=== PATIENT | female | born 1970 | race Two or more races ===

== ENCOUNTER 2019-04-23 13:04 | Emergency (ER) | payer OTHER ==
[~2019-04-23] VITALS: Ht 175.3 cm; Wt 108.9 kg
[2019-04-23] MEDS ORDERED: LISI-603 PO (13:16)
[2019-04-23] MEDS ORDERED: MECLIZINE HCL 25 MG TABLET PO ONE (14:15)
[2019-04-23] MEDS ORDERED: IV NORMAL SALINE 1000 ML BAG IV ONE (14:15)
[2019-04-23 14:16] LABS: BASOPHILS # (AUTO) 0.1 K/uL (0.0-8.0); BASOPHILS % (AUTO) 1.3 % (0.0-2.0); EOSINOPHILS # (AUTO) 0.3 K/uL (0.0-0.7); HEMATOCRIT 40.1 % (31.2-41.9); HEMOGLOBIN 12.8 g/dL (10.9-14.3); LYMPHOCYTES # (AUTO) 2.2 K/uL (20.0-40.0); LYMPHOCYTES % (AUTO) 25.8 % (20.5-51.5); MEAN CORPUSCULAR HEMOGLOBIN 27.1 uug (24.7-32.8); MEAN CORPUSCULAR HGB CONC 32 g/dL (32.3-35.6); MEAN CORPUSCULAR VOLUME 84.5 fL (75.5-95.3); MONOCYTES # (AUTO) 0.5 K/uL (2.0-10.0); MONOCYTES % (AUTO) 5.9 % (0.0-11.0); NEUTROPHILS # (AUTO) 5.5 K/uL (1.8-8.9); PLATELET COUNT (AUTO) 234 K/uL (179-408); RED BLOOD CELL COUNT(AUTO) 4.74 MIL/uL (3.63-4.92); WHITE BLOOD COUNT (AUTO) 8.6 K/uL (3.8-11.8)
[2019-04-23 14:30] LABS: BILIRUBIN,DIRECT 0.1 mg/dL (0.0-0.2); BILIRUBIN,TOTAL 1.4 mg/dL (0.2-1.0); CREATININE 0.8 mg/dL (0.6-1.3); POTASSIUM 3.7 mmol/L (3.5-5.1); TOTAL PROTEIN, SERUM 7.3 g/dL (6.4-8.2)
[2019-04-23] MEDS ORDERED: MECLIZINE HCL 25 MG TABLET ONE (14:30)
--- NOTE | 2019-04-23 15:38 | NUR ---
PT WAS EVALUATED BY DR KEARNEY. PT WAS D/C'd TO HOME. D/C INSTRUCTIONS GIVEN TO THE PT.
[2019-04-23 15:40] VITALS: BP 136/81
== END 2019-04-23 15:40 | disposition home or self-care (01) ==
LOC: ER 13:04
DX: H81.10 Benign paroxysmal vertigo, unspecified ear (principal); Z79.899 Other long term (current) drug therapy
CPT/HCPCS: 36415; 70030-TC; 85025; 93005; A4663; J7030; J8597